=== PATIENT | female | born 2000 | race Caucasian/White ===

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

== ENCOUNTER 2021-04-16 08:15 | Inpatient (IN) | payer SELFPAY ==
[~2021-04-16] VITALS: Ht 157.5 cm; Wt 67.2 kg
[2021-04-16] VITALS (44 sets, daily range): BP systolic 94–145; BP diastolic 51–86
[2021-04-16] MEDS ORDERED: AMPICILLIN FOR IV USE 2,000 MG in WATER (STERILE) FOR INJECTION 14.8 ML IV SCH (09:29)
[2021-04-16] MEDS ORDERED: OXYTOCIN PRE-MIX DRIP 500 ML IV SCH ×2 (09:30→21:45)
[2021-04-16] MEDS ORDERED: MINERAL OIL CONCENTRATE 99.9% 15 ML UDC TOP PRN (09:30)
[2021-04-16] MEDS: D5 LR IV SOLUTION 1,000 ML IV SCH ×3 (10:24→19:01)
[2021-04-16 10:25] LABS: BILIRUBIN,URINE NEGATIVE (NEGATIVE); CLARITY,URINE CLEAR; COLOR,URINE YELLOW; GLUCOSE, URINE (UA) NEGATIVE (NEGATIVE); KETONES,URINE NEGATIVE (NEGATIVE); LEUKOCYTE ESTERASE ,URINE NEGATIVE (NEGATIVE); NITRITE,URINE NEGATIVE (NEGATIVE); PROTEIN,URINE NEGATIVE (NEGATIVE)
[2021-04-16 10:26] LABS: BASOPHILS % (AUTO) 0 % (0-10); EOSINOPHILS # (AUTO) 0.1 10^3/uL (0.0-0.3); EOSINOPHILS % (AUTO) 1 % (0-10); HEMATOCRIT 34 % (35-52); HEMOGLOBIN 11.7 g/dL (11.5-16.0); LYMPHOCYTES # (AUTO) 1.6 10^3/uL (1.0-4.0); LYMPHOCYTES % (AUTO) 18 % (12-44); MEAN CORPUSCULAR HEMOGLOBIN 30 pg (25-34); MEAN CORPUSCULAR HGB CONC 34 g/dL (32-36); MEAN CORPUSCULAR VOLUME 88 fL (80-99); MEAN PLATELET VOLUME 10.7 fL (9.0-12.2); MONOCYTES # (AUTO) 0.7 10^3/uL (0.0-1.0); MONOCYTES % (AUTO) 8 % (0-12); NEUTROPHILS # (AUTO) 6.1 10^3/uL (1.8-7.8); NEUTROPHILS % (AUTO) 72 % (42-75); PLATELET COUNT 179 10^3/uL (130-400); WHITE BLOOD COUNT 8.5 10^3/uL (4.3-11.0)
[2021-04-16 10:35] LABS: BACTERIA,URINE MODERATE /HPF
--- NOTE | 2021-04-16 11:52 | History & Physical-OB ---
OB - Chief Complaint & HPI Date/Time Date of Admission: Date of Admission: Apr 16, 2021 at 09:25 Date seen by a Provider: Apr 16, 2021 Time Seen by a Provider: 09:00 Chief Complaint/History OB-Reason for Admission/Chief: Onset of Labor Hx : 1 Hx Para: 0 Expected Date of Delivery: May 04, 2021 Gestational Age in Weeks: 37 Gestational Age in Days: 3 Admission Nurse Assessment Rev: Yes History of Labs A pos Antibody neg GBS pos Allergies and Home Medications Allergies Coded Allergies: No Known Drug Allergies (Unverified , 04/16/21) Patient Home Medication List Home Medication List Reviewed: Yes OB - History Hx of Present Care: Yes Ultrasounds: Normal mid trimester US Obstetrical Complications: None Medical Complications: None Obstetrical History Hx : 1 Hx Para: 0 Hx Total # of Abortions (Spona: 0 Patient Past Medical History n/a Social History/Family History Alcohol Use: Denies Use Recreational Drug Use: No 2nd Hand Smoke Exposure: No OB - Admission Exam Physical Exam Vitals: Vital Signs 04/16/21 04/16/21 08:30 11:15 Temp 35.7 Pulse 67 Resp 20 B/P (MAP) 126/73 (90) O2 Delivery Room Air HEENT: NCAT Heart: Rhythm Normal Lungs: Clear Abdomen: Gravid Extremities: Normal Reflexes: Normal Cervical Dilatation: 2cm Effacement: 75% Station: -1 Membranes: Intact Heart Rate: 130's Accelerations: Accelerations Present Decelerations: No Decelerations Short Term Variability: Present Filler Feeder Variability: Average (6-25) Contractions on Admission: < 5 Minutes Apart Labs Laboratory Tests Test 04/16/21 10:00 Range/Units White Blood Count 8.5 4.3-11.0 10^3/uL Red Blood Count 3.87 3.80-5.11 10^6/uL Hemoglobin 11.7 11.5-16.0 g/dL Hematocrit 34 L 35-52 % Mean Corpuscular Volume 88 80-99 fL Mean Corpuscular Hemoglobin 30 25-34 pg Mean Corpuscular Hemoglobin Concent 34 32-36 g/dL Red Cell Distribution Width 12.9 10.0-14.5 % Platelet Count 179 130-400 10^3/uL Mean Platelet Volume 10.7 9.0-12.2 fL Immature Granulocyte % (Auto) 0 % Neutrophils (%) (Auto) 72 42-75 % Lymphocytes (%) (Auto) 18 12-44 % Monocytes (%) (Auto) 8 0-12 % Eosinophils (%) (Auto) 1 0-10 % Basophils (%) (Auto) 0 0-10 % Neutrophils # (Auto) 6.1 1.8-7.8 10^3/uL Lymphocytes # (Auto) 1.6 1.0-4.0 10^3/uL Monocytes # (Auto) 0.7 0.0-1.0 10^3/uL Eosinophils # (Auto) 0.1 0.0-0.3 10^3/uL Basophils # (Auto) 0.0 0.0-0.1 10^3/uL Immature Granulocyte # (Auto) 0.0 0.0-0.1 10^3/uL Percent Immature Platelet Fraction 5.1 0.0-7.6 % Urine Color YELLOW Urine Clarity CLEAR Urine pH 6.0 5-9 Urine Specific [place] 1.015 L 1.016-1.022 Urine Protein NEGATIVE NEGATIVE Urine Glucose (UA) NEGATIVE NEGATIVE Urine Ketones NEGATIVE NEGATIVE Urine Nitrite NEGATIVE NEGATIVE Urine Bilirubin NEGATIVE NEGATIVE Urine Urobilinogen 1.0 < = 1.0 MG/DL Urine Leukocyte Esterase NEGATIVE NEGATIVE Urine RBC (Auto) NEGATIVE NEGATIVE Urine RBC NONE /HPF Urine WBC 2-5 /HPF Urine Squamous Epithelial Cells 5-10 /HPF Urine Crystals NONE /LPF Urine Bacteria MODERATE H /HPF Urine Casts NONE /LPF Urine Mucus SMALL H /LPF Urine Culture Indicated YES OB - Assessment/Plan/Diagnosis Assessment Assessment: active labor Admission Dx 20 yo @ 37 weeks Active labor with variable decels GBS pos Admission Status: Inpatient Order (span 2 midnights) Reason for Inpatient Admission: Active labor at term Plan Plan: Expectant Management Other Plan Ampicillin 2 gm, 1gm q 4 GBS prophylaxis SALIMA MURPHY DO Apr 16, 2021 11:52
[2021-04-16] MEDS ORDERED: CATHETER FLUSH 10 ML SYR IV SCH ×2 (14:00→22:00)
[2021-04-16] MEDS: AMPICILLIN FOR IV USE 1,000 MG in WATER (STERILE) FOR INJECTION 7.4 ML IV SCH ×2 (14:17→18:18)
[2021-04-16] MEDS ORDERED: fentaNYL 2 mcg/ml BUPIVA 0.125 100 ML ONE (16:57)
[2021-04-16] MEDS ORDERED: fentaNYL INJ 100 MCG/2 ML AMP ONE (17:27)
[2021-04-16] MEDS ORDERED: BUPIVACAINE 0.25% 30 ML (SENSORCAINE) VIAL ONE (17:27)
[2021-04-16] MEDS ORDERED: EPIDURAL (fentaNYL 2 MCG/ML BUPIVA 0.125%)100 ML BAG EPI PRN (18:15)
[2021-04-16] MEDS ORDERED: LACTATED RINGERS 1,000 ML IV SCH (18:15)
[2021-04-16] MEDS ORDERED: ONDANSETRON 4 MG/2 ML (SDV) Z0FRAN IV PRN (18:15)
[2021-04-16] MEDS ORDERED: NALOXONE 0.4 MG/ML 1 ML (NARCAN) VIAL IV PRN ×2 (18:15)
[2021-04-16] MEDS ORDERED: METOCLOPRAMIDE INJ 10 MG/2 ML (REGLAN) IV PRN (18:15)
[2021-04-16] MEDS ORDERED: diphenhydrAMINE 50 MG/ML INJ (BENADRYL) IV PRN (18:15)
--- NOTE | 2021-04-16 21:32 | OB Labor & Delivery Record ---
L&D History Date of Service Date of Service: Apr 16, 2021 History Expected Date of Delivery: May 04, 2021 Gestational Age in Weeks: 37 Hx : 1 Hx Para: 0 Complications Events: Routine care Operative Indications (Cesarea: N/A-Vaginal Delivery Intrapartal Events: None L&D Stage1 Stage One Onset of Labor - Date: Apr 16, 2021 Monitors and Tracing Monitor Mode: External Heart Rate: 125 Monitor Accelerations: Uniform Monitor Decelerations: Variable Station: -1 Residential Variability: Average (6-10) Short Term Variability: Present Presentation: Vertex Vital Signs VS - Last 72 Hours, by Label 04/16/21 04/16/21 04/16/21 04/16/21 08:30 10:15 10:45 11:15 Temp 35.7 Pulse 62 62 67 67 Resp 20 20 20 20 B/P (MAP) 107/61 (76) 116/72 (87) 126/73 (90) O2 Delivery Room Air 04/16/21 04/16/21 04/16/21 04/16/21 12:10 13:10 13:25 13:55 Temp 36.5 Pulse 111 66 65 Resp 20 20 20 B/P (MAP) 145/65 (91) 117/61 (79) 132/86 (101) 04/16/21 04/16/21 04/16/21 04/16/21 14:05 14:20 14:40 14:50 Temp 35.4 Pulse 55 60 61 Resp 20 20 20 B/P (MAP) 123/63 (83) 129/75 (93) 123/73 (90) 04/16/21 04/16/21 04/16/21 04/16/21 15:15 15:25 15:50 16:40 Pulse 57 58 55 60 Resp 20 20 20 18 B/P (MAP) 122/76 (91) 134/69 (90) 122/75 (91) 108/65 (79) 04/16/21 04/16/21 04/16/21 04/16/21 16:55 17:10 17:25 17:40 Temp 36.5 Pulse 56 60 74 71 Resp 18 18 18 18 B/P (MAP) 118/76 (90) 120/58 (78) 119/57 (77) 128/80 (96) Pulse Ox 97 O2 Delivery Room Air 04/16/21 04/16/21 04/16/21 04/16/21 17:43 17:46 17:49 17:51 Pulse 74 67 71 67 Resp 18 18 18 18 B/P (MAP) 122/71 (88) 132/72 (92) 118/74 (89) 109/58 (75) Pulse Ox 98 98 100 99 O2 Delivery Room Air Room Air Room Air Room Air 04/16/21 04/16/21 04/16/21 04/16/21 17:54 17:57 18:00 18:03 Pulse 70 75 69 73 Resp 18 18 18 18 B/P (MAP) 99/57 (71) 111/57 (75) 103/57 (72) 102/56 (71) Pulse Ox 99 100 100 99 O2 Delivery Room Air Room Air Room Air Room Air 04/16/21 04/16/21 04/16/21 04/16/21 18:06 18:09 18:12 18:15 Pulse 78 69 66 71 Resp 18 18 18 18 B/P (MAP) 102/61 (75) 105/57 (73) 108/62 (77) 109/62 (78) Pulse Ox 99 98 100 100 O2 Delivery Room Air Room Air Room Air Room Air 04/16/21 04/16/21 04/16/21 18:18 19:15 19:30 Pulse 78 74 63 Resp 18 18 18 B/P (MAP) 106/61 (76) 103/65 (78) 106/62 (77) Pulse Ox 100 100 O2 Delivery Room Air Room Air Room Air Rupture of Membranes Spontaneous Ruture of Membrane: No Amniotic Membrane Rupture Time: 1205 Amniotic Membrane Fluid Desc.: Clear Vaginal Bleeding Description: Normal Show Induction/Anesthesia Epidural Cath Placement - Time: 1740 Progress/Notes Patient admitted in early active labor, GBS pos. Antibiotics started and AROM performed. SHe progressed after receiving an epidural to complete and + 2 station L&D Stage2 Monitors and Tracing Monitor Mode: External Heart Rate: 125 Monitor Accelerations: Uniform Monitor Decelerations: Variable Tax Expert Variability: Average (6-10) Short Term Variability: Present Presentation: Vertex Cord Descript/Complications Cord Vessel Description: 3 Vessels Complications nuchal cord reduced x 1 Delivery Type Infant Delivery Method: Spontaneous Vaginal Anterior Shoulder: Right Episiotomy/Perineal Laceration Laceraction(s)/Extensions: Yes Episiotomy Description: Perineal Extension/lac, 1st degree Condition of Infant Delivery 1 minute Comment: 8 5 minute Comment: 9 Notes Live male weight 6lbs 11 oz. Condition of Infant Condition of : Living Exam: No Observed Abnormalities Resuscitation Resuscitation: N/A - Spontaneous Resp L&D Stage3 Stage Three Stage III Date: Apr 16, 2021 Stage III Time: 17:30 Pictocin Pitocin Administration mu/min: 4 Pitocin ml/hr: 4 Pitocin Administration Comment: 30 mu wide open after delivery of placenta Placenta Delivery Placenta Delivery: Spontaneous Delivery Summary Summary Estimated blood loss (mL): 350 Attending at delivery: Salima Murphy DO Condition of Delivery Examined: Cervix Examined, Uterus Explored Post Hemorrhage: No Condition of Mother stable Condition of Infant (s) stable SALIMA MURPHY DO Apr 16, 2021 21:32
--- NOTE | 2021-04-16 21:36 | Discharge Inst-Women's Service ---
Discharge Inst-Women's Serv Depart Medication/Instructions New, Converted or Re-Newed RX: RX on Chart Final Diagnosis PPD 2 NVD Problems Reviewed?: Yes Consults/Follow Up Additional Follow Up: Yes Orders/Referrals Dr. Murphy in 6 weeks Activity Activity: Activity as Tolerated Driving Instructions: No Driving for 1 Week NO SMOKING: NO SMOKING Nothing Inside Vagina: No Douching, No Fox, No Tampons Diet Discharge Diet: No Restrictions Symptoms to Report to : Bleeding Excessive, Pain Increased, Fever Over 101 Degrees F, Vaginal Bleeding Increase, Questions/Concerns For Any Problems or Questions: Contact Your Physician SALIMA MURPHY DO Apr 16, 2021 21:36
[2021-04-16] MEDS ORDERED: BENZ78AE5 TP (21:38)
[2021-04-16] MEDS ORDERED: ACHD5005 PO (21:38)
[2021-04-16] MEDS ORDERED: DCS100C PO (21:38)
[2021-04-16] MEDS ORDERED: DIBU30OI TOP (21:38)
[2021-04-16] MEDS ORDERED: IBUP-844 PO (21:38)
[2021-04-16] MEDS ORDERED: MEASLES,MUMPS,RUBELLA 1 EA INJ SQ ONE (21:45)
[2021-04-16] MEDS ORDERED: TETANUS,DIPTH,PERTUSS P/F (BOOSTRIX) 0.5 ML VIAL IM ONE (21:45)
[2021-04-16] MEDS ORDERED: WITCH HAZEL(TUCKS) 40 EA JAR TOP PRN (21:45)
[2021-04-16] MEDS ORDERED: BENZOCAINE/MENTHOL (DERMOPLAST) 56 ML CAN TP PRN (21:45)
[2021-04-16] MEDS ORDERED: HYDROcodone/APAP 5 MG/325 MG (LORTAB) TAB PO PRN (21:45)
[2021-04-17] MEDS: IBUPROFEN 600 MG (MOTRIN) TAB PO SCH ×4 (00:13→18:12)
[2021-04-17 00:35] VITALS: BP 99/57
[2021-04-17 04:09] VITALS: BP 111/66
[2021-04-17 06:51] LABS: BASOPHILS % (AUTO) 0 % (0-10); EOSINOPHILS % (AUTO) 0 % (0-10); HEMATOCRIT 30 % (35-52); HEMOGLOBIN 10.1 g/dL (11.5-16.0); LYMPHOCYTES # (AUTO) 1.7 10^3/uL (1.0-4.0); LYMPHOCYTES % (AUTO) 16 % (12-44); MEAN CORPUSCULAR HEMOGLOBIN 30 pg (25-34); MEAN CORPUSCULAR HGB CONC 34 g/dL (32-36); MEAN CORPUSCULAR VOLUME 89 fL (80-99); MEAN PLATELET VOLUME 10.9 fL (9.0-12.2); MONOCYTES % (AUTO) 9 % (0-12); NEUTROPHILS # (AUTO) 7.8 10^3/uL (1.8-7.8); NEUTROPHILS % (AUTO) 74 % (42-75); PLATELET COUNT 165 10^3/uL (130-400); WHITE BLOOD COUNT 10.6 10^3/uL (4.3-11.0)
[2021-04-17 07:45] VITALS: BP 101/54
[2021-04-17] MEDS: PRENATAL VITAMIN 1 EA TAB PO SCH (07:46)
[2021-04-17] MEDS: FERROUS SULF 325 MG (IRON) TAB PO SCH (07:46)
[2021-04-17] MEDS: DOCUSATE SODIUM 100 MG (COLACE) CAP PO SCH (07:46)
[2021-04-17 09:50] VITALS: BP 101/57
[2021-04-17 11:31] VITALS: BP 98/53
--- NOTE | 2021-04-17 12:07 | Postpartum Progress Note ---
Note Note Day # 1 Subjective: Patient is without complaints. Sitting up at bedside, while provider in the room. Ambulating, voiding. Tolerating a regular diet without nausea or vomiting. Normal lochia. Pain is well controlled with oral pain medications. Objective: Physical Exam: General - Alert and oriented, no apparent distress Abdomen - Soft, appropriately tender to palpation, non-distended, fundus firm at umbilicus Extremities - no edema, negative Aiyana's bilaterally Assessment: day #1 Acute blood loss anemia Plan: Routine care. Encourage breast feeding. Encourage ambulation. Ferrous sulfate supplementation. Plan for discharge tomorrow, 04/18 Vitals - Labs Vital Signs - I&O Vital Signs Date Time Temp Pulse Resp B/P (MAP) Pulse Ox O2 Delivery O2 Flow Rate FiO2 04/17/21 11:31 36.1 61 18 98/53 (68) Room Air 04/17/21 09:50 61 20 101/57 (72) 98 Room Air 04/17/21 07:45 36.4 76 20 101/54 (70) Room Air 04/17/21 04:09 36.1 62 18 111/66 (81) 99 Room Air 04/17/21 00:35 36.5 76 18 99/57 (71) 98 Room Air 04/16/21 23:00 66 18 99/54 (69) Room Air 04/16/21 22:45 61 18 102/55 (71) Room Air 04/16/21 22:30 68 18 107/66 (80) Room Air 04/16/21 22:15 80 18 107/67 (80) Room Air 04/16/21 22:00 77 18 98/66 (77) Room Air 04/16/21 21:45 85 18 127/51 (76) Room Air 04/16/21 21:30 87 18 112/56 (74) Room Air 04/16/21 21:15 81 18 142/55 (84) Room Air 04/16/21 21:03 18 Room Air 04/16/21 21:00 18 Room Air 04/16/21 20:45 18 Room Air 04/16/21 20:30 18 Room Air 04/16/21 20:15 85 18 94/55 (68) Room Air 04/16/21 20:00 74 18 98/52 (67) Room Air 04/16/21 19:45 68 18 103/63 (76) Room Air 04/16/21 19:30 63 18 106/62 (77) Room Air 04/16/21 19:15 74 18 103/65 (78) 100 Room Air 04/16/21 18:18 78 18 106/61 (76) 100 Room Air 04/16/21 18:15 71 18 109/62 (78) 100 Room Air 04/16/21 18:12 66 18 108/62 (77) 100 Room Air 04/16/21 18:09 69 18 105/57 (73) 98 Room Air 04/16/21 18:06 78 18 102/61 (75) 99 Room Air 04/16/21 18:03 73 18 102/56 (71) 99 Room Air 04/16/21 18:00 69 18 103/57 (72) 100 Room Air 04/16/21 17:57 75 18 111/57 (75) 100 Room Air 04/16/21 17:54 70 18 99/57 (71) 99 Room Air 04/16/21 17:51 67 18 109/58 (75) 99 Room Air 04/16/21 17:49 71 18 118/74 (89) 100 Room Air 04/16/21 17:46 67 18 132/72 (92) 98 Room Air 04/16/21 17:43 74 18 122/71 (88) 98 Room Air 04/16/21 17:40 71 18 128/80 (96) 97 Room Air 04/16/21 17:25 74 18 119/57 (77) 04/16/21 17:10 36.5 60 18 120/58 (78) 04/16/21 16:55 56 18 118/76 (90) 04/16/21 16:40 60 18 108/65 (79) 04/16/21 15:50 55 20 122/75 (91) 04/16/21 15:25 58 20 134/69 (90) 04/16/21 15:15 57 20 122/76 (91) 04/16/21 14:50 35.4 04/16/21 14:40 61 20 123/73 (90) 04/16/21 14:20 60 20 129/75 (93) 04/16/21 14:05 55 20 123/63 (83) 04/16/21 13:55 65 20 132/86 (101) 04/16/21 13:25 66 20 117/61 (79) 04/16/21 13:10 111 20 145/65 (91) 04/16/21 12:10 36.5 I & O 04/17/21 07:00 Intake Total 1000 ml Balance 1000 ml Labs Laboratory Tests 04/16/21 12:35: Syphilis Serology Non-Reactive, Hepatitis B Surface Antigen Non-Reactive, HIV (1&2) Ag and Ab Screen Referral Non-Reactive, Rubella IgG Antibody 0.16, Rubella IgG Ab Interpretation Negative, Rubeola (Measles) IgG Antibody 18.4H, Rubeola (Measles) IgG Ab Interpret PositiveH 04/17/21 06:33: White Blood Count 10.6, Red Blood Count 3.39L, Hemoglobin 10.1L, Hematocrit 30L, Mean Corpuscular Volume 89, Mean Corpuscular Hemoglobin 30, Mean Corpuscular Hemoglobin Concent 34, Red Cell Distribution Width 12.8, Platelet Count 165, Mean Platelet Volume 10.9, Immature Granulocyte % (Auto) 0, Neutrophils (%) (Auto) 74, Lymphocytes (%) (Auto) 16, Monocytes (%) (Auto) 9, Eosinophils (%) (Auto) 0, Basophils (%) (Auto) 0, Neutrophils # (Auto) 7.8, Lymphocytes # (Auto) 1.7, Monocytes # (Auto) 1.0, Eosinophils # (Auto) 0.0, Basophils # (Auto) 0.0, Immature Granulocyte # (Auto) 0.0 MATT ISIDRO MODELER Apr 17, 2021 12:07
--- NOTE | 2021-04-17 15:17 | Anesthesia-Regional Post-Op ---
Regional Patient Condition Mental Status: Alert, Oriented x3 Circulation: Same as Pre-Op Headache: Absent Sensation: Full Recovery Motor Block: Absent Post Op Complications Complications None Follow Up Care/Instructions Patient Instructions None needed. Anesthesia/Patient Condition Patient is doing well, no complaints, stable vital signs, no apparent adverse anesthesia problems. No complications reported per nursing. INOCENCIO GARLAND CRNA Apr 17, 2021 15:17
[2021-04-17 15:59] VITALS: BP 102/55
[2021-04-18 00:24] VITALS: BP 109/68
[2021-04-18] MEDS: IBUPROFEN 600 MG (MOTRIN) TAB PO SCH ×3 (00:25→12:00)
[2021-04-18] MEDS: DOCUSATE SODIUM 100 MG (COLACE) CAP PO SCH ×2 (00:25→09:59)
--- NOTE | 2021-04-18 08:05 | Postpartum Progress Note ---
SHAYLEE WESTBROOK MED STUDENT 04/18/21 0805: Note Note Day # 2 Subjective: Patient is without complaints. Ambulating, voiding. Tolerating a regular diet without nausea or vomiting. Normal lochia. Pain is well controlled with oral pain medications. Objective: Physical Exam: General - Alert and oriented, no apparent distress Abdomen - Soft, appropriately tender to palpation, non-distended, fundus firm at umbilicus Extremities - no edema, negative Aiyana's bilaterally Assessment: post- day #2 , status post vaginal delivery. Acute blood loss anemia Plan: Routine care. Encourage breast feeding. Encourage ambulation. Ferrous sulfate supplementation. Plan for discharge today Vitals - Labs Vital Signs - I&O Vital Signs Date Time Temp Pulse Resp B/P (MAP) Pulse Ox O2 Delivery O2 Flow Rate FiO2 04/18/21 00:24 36.8 52 18 109/68 (82) 98 Room Air 04/17/21 15:59 36.5 62 18 102/55 (71) 97 Room Air 04/17/21 11:31 36.1 61 18 98/53 (68) Room Air 04/17/21 09:50 61 20 101/57 (72) 98 Room Air Labs Microbiology 04/16/21 Urine Culture - Final, Complete 3 or more isolates SALIMA MURPHY DO 04/18/21 0808: Note Note Verification and Attestation of Medical Student E/M Service A medical student performed and documented this service in my presence. I reviewed and verified all information documented by the medical student and made modifications to such information, when appropriate. I personally performed the physical exam and medical decision making. Salima Murphy, Apr 18, 2021,08:07 SHAYLEE WESTBROOK MED STUDENT Apr 18, 2021 08:05 SALIMA MURPHY DO Apr 18, 2021 08:08
[2021-04-18 09:00] VITALS: BP 105/57
[2021-04-18] MEDS: PRENATAL VITAMIN 1 EA TAB PO SCH (09:59)
[2021-04-18] MEDS: FERROUS SULF 325 MG (IRON) TAB PO SCH (09:59)
[2021-04-18] MEDS ORDERED: MEASLES,MUMPS,RUBELLA 1 EA INJ ONE (11:40)
[2021-04-18] MEDS: DIBUCAINE 1% OINTMENT 30 GM TUBE TOP PRN ×2 (11:46→11:49)
[2021-04-18 13:20] VITALS: BP 105/57
== END 2021-04-18 13:20 | disposition home or self-care (01) | DRG 806 ==
LOC: WSo 08:15 → LDRP 08:16 → WSo 09:25 → LDRP 04-17 00:30
PROVIDERS: ADMIT Obstetrics & Gynecology; ATTEND Obstetrics & Gynecology
PROC: 10E0XZZ Delivery of Products of Conception, External Approach (ICD-10-PCS; principal; 2021-04-16)
PROC: 0HQ9XZZ Repair Perineum Skin, External Approach (ICD-10-PCS; 2021-04-16)
DX: O99.824 Streptococcus B carrier state complicating childbirth (principal); D62 Acute posthemorrhagic anemia; Z37.0 Single live birth; Z3A.37 37 weeks gestation of pregnancy; O90.81 Anemia of the puerperium; O69.81X0 Labor and delivery complicated by cord around neck, without compression, not applicable or unspecified; Z23 Encounter for immunization
CPT/HCPCS: 36415; 81000; 84443; 85025; 86703; 86762; 86765; 86780; 86850; 86900; 86901; 87088; 87340; 90707; 99212

== ENCOUNTER → 2022-04-23 | Outpatient (CLI) | payer SELFPAY ==
[~2022-04-23] MED LIST: ACHD5005 PO; BENZ78AE5 TP; DIBU30OI TOP; DOCU-239 PO; IBUP-844 PO
[2022-04-23 16:59] LABS: BASOPHILS # (AUTO) 0.1 10^3/uL (0.0-0.1); BASOPHILS % (AUTO) 1 % (0-10); EOSINOPHILS # (AUTO) 0.1 10^3/uL (0.0-0.3); EOSINOPHILS % (AUTO) 2 % (0-10); HEMATOCRIT 35 % (35-52); HEMOGLOBIN 11.8 g/dL (11.5-16.0); LYMPHOCYTES # (AUTO) 1.7 10^3/uL (1.0-4.0); LYMPHOCYTES % (AUTO) 38 % (12-44); MEAN CORPUSCULAR HEMOGLOBIN 29 pg (25-34); MEAN CORPUSCULAR HGB CONC 34 g/dL (32-36); MEAN CORPUSCULAR VOLUME 85 fL (80-99); MEAN PLATELET VOLUME 10.4 fL (9.0-12.2); MONOCYTES # (AUTO) 0.5 10^3/uL (0.0-1.0); MONOCYTES % (AUTO) 10 % (0-12); NEUTROPHILS # (AUTO) 2.2 10^3/uL (1.8-7.8); NEUTROPHILS % (AUTO) 48 % (42-75); PLATELET COUNT 197 10^3/uL (130-400); WHITE BLOOD COUNT 4.6 10^3/uL (4.3-11.0)
== END ==
LOC: LAB FS 16:11
PROVIDERS: ATTEND Registered Nurse Emergency
DX: O02.1 Missed abortion (principal); O26.899 Other specified pregnancy related conditions, unspecified trimester; R10.9 Unspecified abdominal pain; Z3A.00 Weeks of gestation of pregnancy not specified
CPT/HCPCS: 36415; 84702; 85025

== ENCOUNTER → 2022-04-24 | Outpatient (CLI) | payer SELFPAY | LOC: LABNPT 15:59 | PROVIDERS: ATTEND Registered Nurse Emergency | DX: O02.1 Missed abortion (principal); R10.9 Unspecified abdominal pain | CPT/HCPCS: 87088 ==